=== PATIENT | female | born 1945 | race Asian ===

== ENCOUNTER → 2018-02-28 14:51 | Outpatient (CLI) | payer MEDICARE, SELFPAY ==
--- NOTE | 2018-02-28 | DI.RAD.S_ITS ---
PROCEDURE: XR CHEST 2V INDICATIONS: ACUTE BRONCHITIS TECHNIQUE: 2 views of the chest were acquired. COMPARISON: None. FINDINGS: Surgical changes and devices: None. Lungs and pleura: No pleural effusions or pneumothorax. Lungs are clear. Mediastinum: Mediastinal contours are normal. Heart size is normal. Bones and chest wall: No suspicious bony abnormalities. Soft tissues appear unremarkable. IMPRESSION: Normal for age, source of current symptoms is not seen. Dictated by: Edilson Bonner M.D. on 02/28/2018 at 15:35 Approved by: Edilson Bonner M.D. on 02/28/2018 at 15:35
== END ==
PROVIDERS: PCP Student in an Organized Health Care Education/Training Program; Visit Provider Student in an Organized Health Care Education/Training Program
DX: J20.9 Acute bronchitis, unspecified (principal)
CPT/HCPCS: 71046

== ENCOUNTER → 2018-06-15 10:14 | Outpatient (CLI) | payer MEDICARE, SELFPAY ==
--- NOTE | 2018-06-15 | DI.MG.S_ITS ---
BILATERAL DIGITAL SCREENING MAMMOGRAM 3D/2D WITH CAD: 06/15/2018 Comparison is made to exams dated: 04/20/2017 mammogram, 04/07/2016 mammogram, and 03/30/2015 mammogram - [facility]. There are scattered fibroglandular elements in both breasts. Current study was also evaluated with a Computer Aided Detection (CAD) system. There are mole markers on the right breast. No significant masses, calcifications, or other findings are seen in either breast. There has been no significant interval change. IMPRESSION: NEGATIVE There is no mammographic evidence of malignancy. A 1 year screening mammogram is recommended. This exam was interpreted at Station ID: [id number]. NOTE: For mammograms, a report in lay terms will be sent to the patient. Approximately 15% of breast malignancies will not be visualized mammographically. In the management of a palpable breast mass, a negative mammogram must not discourage biopsy of a clinically suspicious lesion. Electronically Signed By: Dima viera/mirela:06/15/2018 11:22:43 letter sent: Normal Exam ACR BI-RADS Category 1: Negative [id number]
== END ==
PROVIDERS: PCP Student in an Organized Health Care Education/Training Program; Visit Provider Student in an Organized Health Care Education/Training Program
DX: Z12.31 Encounter for screening mammogram for malignant neoplasm of breast (principal); M81.0 Age-related osteoporosis without current pathological fracture; Z78.0 Asymptomatic menopausal state; E07.9 Disorder of thyroid, unspecified
CPT/HCPCS: 77063; 77067; 77080

== ENCOUNTER → 2018-08-15 08:26 | Outpatient (CLI) | payer MEDICARE, SELFPAY ==
[2018-08-15 09:36] LABS: Add Manual Diff / Slide Review NO; Basophils Absolute Auto 100 /uL (0-100); Basophils Percent Auto 1.2 % (0-2); Eosinophils Absolute Auto 100 /uL (0-450); Eosinophils Percent Auto 2.3 % (2-4); Hematocrit 46.7 % (36-46); Hemoglobin 15.4 g/dL (12.0-16.0); Lymphocytes Absolute Auto 2500 /uL (1100-4500); Lymphocytes Percent Auto 43.5 % (25-40); Mean Corpuscular Hemoglobin 28.9 PG (26-34); Mean Corpuscular Volume 87.8 fL (80-100); Monocytes Absolute Auto 400 /uL (0-900); Monocytes Percent Auto 6.5 % (3-14); Neutrophils Absolute Auto 2700 /uL (1500-7000); Neutrophils Percent Auto 46.5 % (50-75); Platelet Count 229 X10^3/uL (150-400); Red Blood Cell Count 5.32 X10^6/uL (4.0-5.2); Red Cell Distribution Width 13.4 % (11.6-14.8); White Blood Cell Count 5.7 X10^3/uL (4.5-11.0)
[2018-08-15 09:43] LABS: Hemoglobin A1C% w Est Avg Glu 7.3 % (4.0-6.0)
[2018-08-15 10:34] LABS: Thyroid Stimulating Hormone 1.06 uIU/mL (0.47-4.68)
[2018-08-15 11:20] LABS: HEMOLYSIS < 15 (0-50); Iron 106 ug/dL (37-170)
[2018-08-15 11:30] LABS: Percent Iron Saturation 36 % (15-50); Total Iron Binding Capacity 298 ug/dL (265-497); Transferrin 257 mg/dL (206-381)
[2018-08-15 12:01] LABS: Alanine Aminotransferase 35 IU/L (9-52); Albumin 4.7 g/dL (3.5-5.0); Albumin Globulin Ratio 1.4 (1.0-2.8); Alkaline Phosphatase 76 U/L (38-126); Aspartate Aminotransferase 25 IU/L (14-36); BUN Creatinine Ratio 24.3 (6-22); Bilirubin Total 0.8 mg/dL (0.2-1.3); Blood Urea Nitrogen 17 mg/dL (7-17); Carbon Dioxide 26 mmol/L (22-32); Chloride 102 mmol/L (98-107); Estimated Glomerular Filt Rate > 60.0 mL/min (>60); Globulin 3.4 g/dL (1.7-4.1); Glucose 138 mg/dL (80-110); HEMOLYSIS < 15 (0-50); Potassium 4.7 mmol/L (3.4-5.1); Sodium 139 mmol/L (137-145); Total Protein 8.1 g/dL (6.3-8.2)
== END ==
PROVIDERS: PCP Student in an Organized Health Care Education/Training Program; Visit Provider Student in an Organized Health Care Education/Training Program
DX: E11.9 Type 2 diabetes mellitus without complications (principal); I10 Essential (primary) hypertension; E03.9 Hypothyroidism, unspecified; E78.5 Hyperlipidemia, unspecified
CPT/HCPCS: 36415; 80053; 83036; 83540; 83550; 84443; 85025

== ENCOUNTER → 2018-08-23 11:51 | Outpatient (CLI) | payer MEDICARE, SELFPAY ==
--- NOTE | 2018-08-23 | DI.RAD.S_ITS ---
PROCEDURE: XR CHEST 2V INDICATIONS: ACUTE BRONCHITIS TECHNIQUE: 2 views of the chest were acquired. COMPARISON: [facility], CR, XR CHEST 2V, 02/28/2018, 14:46. FINDINGS: Surgical changes and devices: None. Lungs and pleura: Lungs are clear. No pleural effusions or pneumothorax. Mediastinum: Mediastinal contours are normal. Heart size is normal. Bones and chest wall: No suspicious bony abnormalities. Soft tissues appear unremarkable. IMPRESSION: No evidence acute pulmonary process. Dictated by: Matti Parker M.D. on 08/23/2018 at 14:00 Approved by: Matti Parker M.D. on 08/23/2018 at 14:01
== END ==
PROVIDERS: PCP Student in an Organized Health Care Education/Training Program; Visit Provider Student in an Organized Health Care Education/Training Program
DX: J20.9 Acute bronchitis, unspecified (principal)
CPT/HCPCS: 71046

== ENCOUNTER → 2020-07-17 10:34 | Outpatient (CLI) | payer MEDICARE, SELFPAY ==
[2020-07-17] MEDS: COVID-19 VACC #1, MRNA(MOD) 100 MCG/0.5 ML VIAL IM (10:42)
== END ==
PROVIDERS: PCP Student in an Organized Health Care Education/Training Program; Visit Provider Internal Medicine
DX: Z23 Encounter for immunization (principal)
CPT/HCPCS: 0011A; 91301

== ENCOUNTER → 2020-08-14 08:44 | Outpatient (CLI) | payer MEDICARE, SELFPAY ==
[2020-08-14] MEDS: COVID-19 VACC #2, MRNA(MOD) 100 MCG/0.5 ML VIAL IM (08:50)
== END ==
PROVIDERS: PCP Student in an Organized Health Care Education/Training Program; Visit Provider Internal Medicine
DX: Z23 Encounter for immunization (principal)
CPT/HCPCS: 0012A; 91301

== ENCOUNTER → 2020-11-25 15:03 | Outpatient (CLI) | payer MEDICARE, SELFPAY ==
[2020-11-25 16:16] LABS: Add Manual Diff / Slide Review NO; Basophils Absolute Auto 100 /uL (0-100); Eosinophils Absolute Auto 200 /uL (0-450); Eosinophils Percent Auto 2.5 % (2-4); Hematocrit 46.1 % (36-46); Hemoglobin 15.2 g/dL (12.0-16.0); Lymphocytes Absolute Auto 2900 /uL (1100-4500); Lymphocytes Percent Auto 42.7 % (25-40); Mean Corpuscular HGB Conc 32.9 % (30-36); Mean Corpuscular Hemoglobin 28.8 PG (26-34); Mean Corpuscular Volume 87.5 fL (80-100); Monocytes Absolute Auto 500 /uL (0-900); Neutrophils Absolute Auto 3100 /uL (1500-7000); Neutrophils Percent Auto 45.8 % (50-75); Platelet Count 219 X10^3/uL (150-400); Red Blood Cell Count 5.27 X10^6/uL (4.0-5.2); Red Cell Distribution Width 13.4 % (11.6-14.8); White Blood Cell Count 6.8 X10^3/uL (4.5-11.0)
[2020-11-25 16:22] LABS: Hemoglobin A1C% w Est Avg Glu 10.1 % (4.0-6.0)
[2020-11-25 16:55] LABS: Potassium 4.7 mmol/L (3.4-5.1)
[2020-11-25 16:56] LABS: Blood Urea Nitrogen 13 mg/dL (7-17); Calcium 9.9 mg/dL (8.4-10.2); Carbon Dioxide 26 mmol/L (22-32); Chloride 101 mmol/L (98-107); Estimated Glomerular Filt Rate > 60.0 mL/min (>60); Glucose 233 mg/dL (80-110); Sodium 136 mmol/L (137-145)
[2020-11-25 17:04] LABS: HEMOLYSIS 63 (0-50)
[2020-11-25 17:25] LABS: TSH w/ Reflex to FT4 1.15 uIU/mL (0.47-4.68)
[2020-11-25 18:30] LABS: Creatinine Urine Random 68.7 mg/dL
[2020-11-25 18:34] LABS: Microalbumi Creatinin Ratio Ur 23.2 ug/mg CR (<30); Microalbumin Urine Random 1.6 mg/dL (0-1.6)
== END ==
PROVIDERS: PCP Student in an Organized Health Care Education/Training Program; Referring Provider Student in an Organized Health Care Education/Training Program; Visit Provider Student in an Organized Health Care Education/Training Program
DX: I10 Essential (primary) hypertension (principal); E03.9 Hypothyroidism, unspecified; E78.2 Mixed hyperlipidemia; R73.9 Hyperglycemia, unspecified; Z79.899 Other long term (current) drug therapy
CPT/HCPCS: 36415; 80048; 82043; 82570; 83036; 84443; 85025

== ENCOUNTER → 2020-12-31 15:03 | Outpatient (CLI) | payer MEDICARE, SELFPAY | PROVIDERS: PCP Student in an Organized Health Care Education/Training Program; Referring Provider Student in an Organized Health Care Education/Training Program; Visit Provider Student in an Organized Health Care Education/Training Program | DX: Z78.0 Asymptomatic menopausal state (principal); E03.9 Hypothyroidism, unspecified; M85.852 Other specified disorders of bone density and structure, left thigh; E11.9 Type 2 diabetes mellitus without complications | CPT/HCPCS: 77080 ==

== ENCOUNTER → 2021-03-16 09:56 | Outpatient (CLI) | payer MEDICARE, SELFPAY ==
[2021-03-16 11:05] LABS: Hemoglobin A1C% w Est Avg Glu 7.3 % (4.0-6.0)
== END ==
PROVIDERS: PCP Student in an Organized Health Care Education/Training Program; Referring Provider Student in an Organized Health Care Education/Training Program; Visit Provider Student in an Organized Health Care Education/Training Program
DX: E11.9 Type 2 diabetes mellitus without complications (principal)
CPT/HCPCS: 36415; 83036

== ENCOUNTER → 2021-08-03 09:08 | Outpatient (CLI) | payer OTHER, SELFPAY ==
[2021-08-03 11:16] LABS: Hemoglobin A1C% w Est Avg Glu 6.3 % (4.0-6.0)
== END ==
PROVIDERS: PCP Student in an Organized Health Care Education/Training Program; Referring Provider Student in an Organized Health Care Education/Training Program; Visit Provider Student in an Organized Health Care Education/Training Program
DX: E11.9 Type 2 diabetes mellitus without complications (principal)
CPT/HCPCS: 36415; 83036

== ENCOUNTER → 2021-11-19 06:57 | Outpatient (CLI) | payer OTHER, SELFPAY ==
[2021-11-19 08:28] LABS: Creatinine Urine Random 62.3 mg/dL
[2021-11-19 08:32] LABS: Microalbumin Urine Random 1.5 mg/dL (0-1.6)
[2021-11-19 08:38] LABS: Cholesterol 157 mg/dL (140-199); HDL Cholesterol 67 mg/dL (40-60); LDL Cholesterol Calculated 65 mg/dL (<100); Triglycerides 126 mg/dL (35-150)
[2021-11-19 08:40] LABS: Hemoglobin A1C% w Est Avg Glu 6.8 % (4.0-6.0)
[2021-11-19 09:09] LABS: TSH w/ Reflex to FT4 1.03 uIU/mL (0.47-4.68)
== END ==
PROVIDERS: PCP Student in an Organized Health Care Education/Training Program; Referring Provider Student in an Organized Health Care Education/Training Program; Visit Provider Student in an Organized Health Care Education/Training Program
DX: E11.69 Type 2 diabetes mellitus with other specified complication (principal); E78.5 Hyperlipidemia, unspecified; E11.9 Type 2 diabetes mellitus without complications; E03.9 Hypothyroidism, unspecified
CPT/HCPCS: 36415; 80061; 82043; 82570; 83036; 84443

== ENCOUNTER → 2022-05-05 08:12 | Outpatient (CLI) | payer OTHER, SELFPAY ==
[2022-05-05 09:20] LABS: Hemoglobin A1C% w Est Avg Glu 7.3 % (4.0-6.0)
== END ==
PROVIDERS: PCP Student in an Organized Health Care Education/Training Program; Referring Provider Student in an Organized Health Care Education/Training Program; Visit Provider Student in an Organized Health Care Education/Training Program
DX: E11.9 Type 2 diabetes mellitus without complications (principal)
CPT/HCPCS: 36415; 83036

== ENCOUNTER → 2022-11-08 06:30 | Outpatient (CLI) | payer OTHER, SELFPAY ==
[2022-11-08 08:31] LABS: BUN Creatinine Ratio 25.7 (6-22); Blood Urea Nitrogen 18 mg/dL (7-17); Calcium 9.3 mg/dL (8.4-10.2); Carbon Dioxide 26 mmol/L (22-32); Chloride 105 mmol/L (98-107); Cholesterol 122 mg/dL (140-199); Estimated Glomerular Filt Rate > 60 mL/min (>60); Glucose 137 mg/dL (80-110); HDL Cholesterol 57 mg/dL (40-60); HEMOLYSIS < 15 (0-50); LDL Cholesterol Calculated 46 mg/dL (<100); Potassium 4.1 mmol/L (3.4-5.1); Sodium 139 mmol/L (137-145); Triglycerides 94 mg/dL (35-150)
[2022-11-08 08:58] LABS: TSH w/ Reflex to FT4 1.51 uIU/mL (0.47-4.68)
[2022-11-08 09:13] LABS: Creatinine Urine Random 169.7 mg/dL
[2022-11-08 09:17] LABS: Microalbumi Creatinin Ratio Ur 8.2 ug/mg CR (<30); Microalbumin Urine Random 1.4 mg/dL (0-1.6)
[2022-11-09 06:01] LABS: x Labcorp Estim. Avg Glu (eAG) 166 mg/dL (.); x Labcorp Hemoglobin A1c 7.4 % (4.8-5.6)
== END ==
PROVIDERS: PCP Student in an Organized Health Care Education/Training Program; Referring Provider Student in an Organized Health Care Education/Training Program; Visit Provider Student in an Organized Health Care Education/Training Program
DX: E11.9 Type 2 diabetes mellitus without complications; E11.69 Type 2 diabetes mellitus with other specified complication; E78.5 Hyperlipidemia, unspecified; I10 Essential (primary) hypertension; E03.9 Hypothyroidism, unspecified
CPT/HCPCS: 36415; 80048; 80061; 82043; 82570; 83036; 84443

== ENCOUNTER 2023-01-11 20:11 | Emergency (ER) | payer OTHER, SELFPAY ==
[2023-01-11] VITALS (8 sets, daily range): BP systolic 171–239; BP diastolic 76–118; PULSE 63–85; RESP 18–33; TEMP 36; O2SAT 96–98; BMI 31.6
--- NOTE | 2023-01-11 20:53 | DI.US.S_ITS ---
PROCEDURE: US ABDOMEN LIMITED INDICATIONS: RUQ PAIN TECHNIQUE: Real-time focused scanning was performed of the abdomen, with image documentation. COMPARISON: None. FINDINGS: Evaluation limited by body habitus. Liver: The liver demonstrates increased parenchymal echogenicity compatible with fatty infiltration. Gallbladder: The gallbladder demonstrates multiple intraluminal gallstones. No wall thickening or pericholecystic fluid. Patient was reportedly tender on examination. Biliary system: No intra or extrahepatic biliary ductal dilatation. Pancreas: Not well seen. IMPRESSION: 1. Cholelithiasis without definite evidence of cholecystitis. 2. Increased hepatic echogenicity compatible with steatosis. Dictated by: Shiraz Lester M.D. on 01/11/2023 at 22:18 Approved by: Shiraz Lester M.D. on 01/11/2023 at 22:22
--- NOTE | 2023-01-11 20:53 | ED_ITS ---
HPI - General Adult General Chief complaint: Abdominal Pain Stated complaint: severe abd pain Time Seen by Provider: 01/11/23 20:44 Source: patient Mode of arrival: Ambulatory History of Present Illness HPI narrative: Patient is a 77-year-old female who is here for evaluation of upper abdominal discomfort. She states that it occurred this evening after eating dinner. Somewhat hard for her to pinpoint other than it is in her upper abdomen. No diarrhea. No constipation. No urinary symptoms. Some nausea but no vomiting. No prior abdominal surgeries. Afebrile. Has not tried anything for the symptoms prior to arrival. Related Data Previous Rx's Medication Instructions Recorded atorvastatin 20 mg tablet (Lipitor) 20 mg PO DAILY #90 tabs 11/10/22 aspirin 81 mg tablet,delayed 81 mg PO DAILY #90 tabs 11/14/22 release clonidine HCl 0.1 mg tablet 0.1 mg PO BEDTIME #90 tabs 11/14/22 diltiazem HCl 180 mg 180 mg PO DAILY #90 caps 11/14/22 capsule,extended release 24 hr levothyroxine 50 mcg tablet 50 mcg PO DAILY #90 tabs 11/14/22 (Synthroid) loratadine 10 mg tablet 10 mg PO DAILY PRN allergy 11/14/22 symptoms #90 tabs losartan 100 mg tablet 100 mg PO DAILY #90 tabs 11/14/22 metformin 1,000 mg tablet 1,000 mg PO BIDWMEAL #180 tabs 11/14/22 Allergies Allergy/AdvReac Type Severity Reaction Status Date / Time No Known Drug Allergies Allergy Unverified 11/14/22 08:27 Review of Systems Constitutional Constitutional: Reports system reviewed and no additional complaints, except as documented Cardiovascular Cardiovascular: Reports system reviewed and no additional complaints, except as documented Respiratory Respiratory: Reports system reviewed and no additional complaints, except as documented Gastrointestinal Gastrointestinal: Reports system reviewed and no additional complaints, except as documented Genitourinary Genitourinary: Reports system reviewed and no additional complaints, except as documented Integumentary/Breasts Skin/Breast: Reports system reviewed and no additional complaints, except as documented Patient History Medical History Environmental allergies Surgical History (Updated 08/16/19 @ 20:37 by Nelli Collins) History of section (~08/21/85) Family History (Updated 08/16/19 @ 20:38 by Nelli Collins) Father Hypertension Social History Smoking Status: Never smoker Smoking Status: Never smoker Substance Use Type: does not use Exam Initial Vital Signs Initial Vital Signs: Vital Signs Temperature 96.8 F L 01/11/23 20:15 Pulse Rate 85 01/11/23 20:15 Respiratory Rate 18 01/11/23 20:15 Blood Pressure 239/117 H 01/11/23 20:15 Pulse Oximetry 98 01/11/23 20:15 Oxygen Delivery Method Room Air 01/11/23 20:15 Const General: cooperative, comfortable and No ill appearing HENMT Head: normal to inspection and normocephalic Resp Effort & Inspection: normal respiratory effort Auscultation: clear to auscultation bilaterally Cardio Rate: regular rate Rhythm: regular rhythm GI Inspection: normal to inspection Palpation: soft, No firm and tender (Epigastric and right upper quadrant) Back/Spine/Pelvis Back: No CVA tenderness Skin General: no rashes or lesions noted Neuro General: patient alert, patient awake, patient oriented x3 and moves all extremities Extrem General: capillary refill normal Course Orders Ordered: ED Orders 01/11/23 20:41 Complete Blood Count AUTO DIFF Stat Comprehensive Metabolic Panel Stat Lipase Stat 01/11/23 20:44 EKG-12 Lead Stat 01/11/23 20:53 US abdomen limited Stat 01/11/23 22:59 CT abdomen pelvis w con Stat Ondansetron HCl (Ondansetron 4 Mg/2 Ml Inj) 4 mg IV NOW PRN PRN Reason: Nausea And Vomiting Last Admin: 01/11/23 21:02 Dose: 4 mg Documented By: OW Ondansetron HCl (Ondansetron 4 Mg Odt) 4 mg PO NOW PRN PRN Reason: Nausea And Vomiting Discontinued Medications Clonidine HCl (Clonidine 0.1 Mg Tablet) 0.1 mg PO NOW ONE Stop: 01/11/23 20:54 Last Admin: 01/11/23 21:02 Dose: 0.1 mg Documented By: OW Morphine Sulfate (Morphine 4 Mg/Ml Inj) 4 mg IV NOW ONE Stop: 01/11/23 20:54 Last Admin: 01/11/23 21:03 Dose: 4 mg Documented By: OW Morphine Sulfate (Morphine 4 Mg/Ml Inj) 4 mg IV NOW ONE Stop: 01/11/23 23:00 Last Admin: 01/11/23 23:08 Dose: 4 mg Documented By: CHARITY Vital Signs Vital signs: Vital Signs - 8 hr 01/11/23 20:15 01/11/23 20:45 01/11/23 21:02 Temperature 96.8 F L Pulse Rate 85 71 76 Respiratory Rate 18 20 Blood Pressure 239/117 H 225/105 H 219/100 H Pulse Oximetry 98 96 Oxygen Delivery Method Room Air Room Air 01/11/23 21:00 01/11/23 21:31 01/11/23 22:00 Temperature Pulse Rate 77 63 Respiratory Rate 26 H 33 H Blood Pressure 219/100 H 178/76 H 199/112 H Pulse Oximetry 96 96 Oxygen Delivery Method Room Air Room Air 01/11/23 22:00 01/11/23 22:30 01/11/23 22:30 Temperature Pulse Rate 65 68 Respiratory Rate 30 H 32 H Blood Pressure 171/118 H Pulse Oximetry 96 97 Oxygen Delivery Method 01/11/23 23:00 Temperature Pulse Rate 67 Respiratory Rate 25 H Blood Pressure 192/90 H Pulse Oximetry 96 Oxygen Delivery Method Room Air Medical Decision Making Lab Data Lab results reviewed: Yes I reviewed the patient's lab results. 01/11/23 20:41 01/11/23 20:41 Labs: Lab Results 01/11/23 01/11/23 Range/Units 20:41 20:41 WBC 9.5 (4.5-11.0) X10^3/uL RBC 5.04 (4.0-5.2) X10^6/uL Hgb 14.6 (12.0-16.0) g/dL Hct 43.7 (36-46) % MCV 86.7 (80-100) fL MCH 29.0 (26-34) PG MCHC 33.5 (30-36) % RDW 13.8 (11.6-14.8) % Plt Count 233 (150-400) X10^3/uL Neut % (Auto) 60.5 (50-75) % Lymph % (Auto) 29.5 (25-40) % [place] % (Auto) 7.5 (3-14) % Eos % (Auto) 1.3 L (2-4) % Baso % (Auto) 1.2 (0-2) % Neut # (Auto) 5700 (6898-1460) /uL Lymph # (Auto) 2800 (0019-7711) /uL [place] # (Auto) 700 (0-900) /uL Eos # (Auto) 100 (0-450) /uL Baso # (Auto) 100 (0-100) /uL Sodium 136 L (137-145) mmol/L Potassium 4.1 (3.4-5.1) mmol/L Chloride 101 (98-107) mmol/L Carbon Dioxide 23 (22-32) mmol/L BUN 21 H (7-17) mg/dL Creatinine 0.78 (0.52-1.04) mg/dL Estimated GFR > 60 (>60) mL/min BUN/Creatinine Ratio 26.9 H (6-22) Glucose 177 H (80-110) mg/dL Calcium 9.5 (8.4-10.2) mg/dL Total Bilirubin 0.4 (0.2-1.3) mg/dL AST 35 (14-36) IU/L ALT 33 (<35) IU/L Alkaline Phosphatase 89 (38-126) U/L Total Protein 8.2 (6.3-8.2) g/dL Albumin 4.7 (3.5-5.0) g/dL Globulin 3.5 (1.7-4.1) g/dL Albumin/Globulin Ratio 1.3 (1.0-2.8) Lipase 91 (23-300) U/L Urine Dip Bedside Urine Glucose Negative Bedside Urine Bilirubin - Negative Bedside Urine Ketone - Negative Urine Specific [place] 1.10 Bedside Urine Occult Blood - Negative Bedside Urine pH 6.0 Bedside Urine Protein - Negative Bedside Urine Urobilinogen - Negative Bedside Urine Nitrite - Negative Bedside Urine Leukocytes - Negative Esterase Point of care testing: Urine Dip Bedside Urine Glucose Negative Bedside Urine Bilirubin - Negative Bedside Urine Ketone - Negative Urine Specific [place] 1.10 Bedside Urine Occult Blood - Negative Bedside Urine pH 6.0 Bedside Urine Protein - Negative Bedside Urine Urobilinogen - Negative Bedside Urine Nitrite - Negative Bedside Urine Leukocytes - Negative Esterase Imaging Data US - abdomen: Radiologist's Impression: PROCEDURE: US ABDOMEN LIMITED ? INDICATIONS:? RUQ PAIN ? TECHNIQUE:? Real-time focused scanning was performed of the abdomen, with image documentat ion.? ? COMPARISON:? None. ? FINDINGS:? ? Evaluation limited by body habitus. ? Liver: The liver demonstrates increased parenchymal echogenicity compatible with fatty infiltration. ? Gallbladder: The gallbladder demonstrates multiple intraluminal gallstones.? No wall thickening or pericholecystic fluid.? Patient was reportedly tender on examination. ? Biliary system: No intra or extrahepatic biliary ductal dilatation. ? Pancreas:? Not well seen. ? IMPRESSION:? ? 1. Cholelithiasis without definite evidence of cholecystitis. ? 2. Increased hepatic echogenicity compatible with steatosis.? CT scan - abdomen/pelvis: Radiologist's Impression: PROCEDURE:? CT ABDOMEN PELVIS W CON ? INDICATIONS:? Right-sided abdominal pain ? TECHNIQUE:? After the administration of IV contrast, axial sections were acquired from the lung bases to the pubic symphysis.? Coronal and sagittal reformats were performed.? For radiation dose reduction, the following was used:? automated exposure control, adjustment of mA and/or kV according to patient size. ? COMPARISON:? None. ? FINDINGS:? Image quality:? Excellent.? ? Lung bases:? There is mild atelectasis and scarring in the lung bases.? ? Heart:? Heart is normal in size. ? ? ABDOMEN: Liver:? No mass lesion. Gallbladder:? There is partial distention of the gallbladder fundus suggestive of a Phrygian cap with internal densely calcified stone or mass measuring up to 3.1 cm.? A few small dependent calcified gallstones are also demonstrated elsewhere in the gallbladder.? No definite wall thickening or pericholecystic fluid. Biliary ducts:? No biliary ductal dilatation.? ? Pancreas:? Unremarkable.? ? Spleen:? Normal in size.? ? Adrenal Glands:? There is a left adrenal nodule measuring up to 1.5 cm with indeterminate attenuation values. Kidneys and Ureters:? No hydronephrosis.? There are small hypodense foci within the kidneys which are too small to characterize but likely represent cysts. ? ? Stomach and Bowel:? There are a few mildly distended loops of small bowel within the mid abdomen, measuring up to 3.0 cm with scattered air-fluid levels and small bowel fecalization.? The appendix is normal.? Peritoneum:? No abnormal intraperitoneal fluid.? No free air.? ? Ventral Wall: ? No hernia.? Abdominal Nodes:? No retroperitoneal or mesenteric adenopathy by size criteria.? Vessels:? Aorta and inferior vena cava are normal in size.? ? PELVIS: Pelvic Organs:? There are multiple densely calcified fibroids within the uterus.? ? Bladder:? Unremarkable.? ? Pelvic Nodes: No enlarged lymph nodes.? Miscellaneous: No inguinal hernias are seen. ? ? ? Bones:? Visualized osseous structures demonstrate no suspicious focal lesions. ? IMPRESSION:? ? 1. Phrygian cap of the gallbladder with internal calcified stones or mass.? Cholelithiasis also demonstrated elsewhere in the gallbladder without CT evidence of cholecystitis. ? 2. Indeterminate left adrenal nodule. ? 3. Mildly distended loops of small bowel in the mid abdomen with scattered air- fluid levels and small bowel fecalization.? The findings are suggestive of stasis, an ileus, or gastroenteritis.? The differential includes developing bowel obstruction but this is considered less likely.? ECG Data Attestation: I personally reviewed and interpreted this ECG as follows: Interpretation: Sinus rhythm Ventricular rate 83 Normal axis Normal QRS Normal QTC No ST T wave changes MDM Narrative Medical decision making narrative: Patient does have upper abdominal pain. She has cholelithiasis without signs of acute cholecystitis and a normal lactate and LFTs and bilirubin. This could potentially be the source of her symptoms. She did feel somewhat better after the nausea and pain medication. A CT scan was ordered as well. She does have findings that are consistent with gastroenteritis. This could very well been the cause of her symptoms as well. It did start right after she ate dinner this evening. There was no indication for antibiotics. No indication for emergent surgical consultation. I had a discussion with her and family at bedside rega rding these symptoms. Recommended a bland diet. Nausea medication as needed. Follow-up with General surgery. They were given strict return precautions. They expressed understanding and agreement. Discharge Plan Departure Patient Disposition: Home Clinical Impression: Cholelithiasis, Gastroenteritis, Abdominal pain Instructions: DI for Abdominal Pain-Adult Activity Restrictions/Additional Instructions: You can continue to take all of your medications as directed. I would not be surprised if over the next couple days you do develop some diarrhea. Be sure that you were just increasing your fluid intake if this happens. Also recommend a bland diet. You can try Tylenol/ibuprofen and potentially some Pepto-Bismol to help with the abdominal discomfort. Contact the general surgeons at the number provided below when your symptoms have improved to discuss potentially having your gallbladder removed. Return to the emergency department for new or worsening symptoms. Prescriptions: No Action atorvastatin [Lipitor] 20 mg tablet 20 mg PO DAILY Qty: 90 0RF aspirin 81 mg tablet,delayed release (DR/EC) 81 mg PO DAILY Qty: 90 1RF diltiazem HCl 180 mg capsule,extended release 24hr 180 mg PO DAILY Qty: 90 1RF clonidine HCl 0.1 mg tablet 0.1 mg PO BEDTIME Qty: 90 1RF levothyroxine [Synthroid] 50 mcg tablet 50 mcg PO DAILY Qty: 90 1RF loratadine 10 mg tablet 10 mg PO DAILY PRN (Reason: allergy symptoms) Qty: 90 1RF losartan 100 mg tablet 100 mg PO DAILY Qty: 90 1RF metformin 1,000 mg tablet 1,000 mg PO BIDWMEAL Qty: 180 1RF Referrals: Isha Everett MD [Physician] - Abdelrahman Roberts MD [Primary Care Provider] - Stand Alone Forms: Patient Portal/API
[2023-01-11 21:00] LABS: Add Manual Diff / Slide Review NO; Basophils Absolute Auto 100 /uL (0-100); Basophils Percent Auto 1.2 % (0-2); Eosinophils Absolute Auto 100 /uL (0-450); Eosinophils Percent Auto 1.3 % (2-4); Hematocrit 43.7 % (36-46); Hemoglobin 14.6 g/dL (12.0-16.0); Lymphocytes Absolute Auto 2800 /uL (1100-4500); Lymphocytes Percent Auto 29.5 % (25-40); Mean Corpuscular HGB Conc 33.5 % (30-36); Mean Corpuscular Volume 86.7 fL (80-100); Monocytes Absolute Auto 700 /uL (0-900); Monocytes Percent Auto 7.5 % (3-14); Neutrophils Absolute Auto 5700 /uL (1500-7000); Neutrophils Percent Auto 60.5 % (50-75); Platelet Count 233 X10^3/uL (150-400); Red Blood Cell Count 5.04 X10^6/uL (4.0-5.2); Red Cell Distribution Width 13.8 % (11.6-14.8); White Blood Cell Count 9.5 X10^3/uL (4.5-11.0)
[2023-01-11] MEDS: ONDANSETRON 4 MG/2 ML INJ IV (21:02)
[2023-01-11] MEDS: cloNIDine 0.1 MG TABLET PO (21:02)
[2023-01-11] MEDS: MORPHINE 4 MG/ML INJ IV ×2 (21:03→23:08)
[2023-01-11 21:05] LABS: Alanine Aminotransferase 33 IU/L (<35); Albumin 4.7 g/dL (3.5-5.0); Albumin Globulin Ratio 1.3 (1.0-2.8); Alkaline Phosphatase 89 U/L (38-126); Aspartate Aminotransferase 35 IU/L (14-36); BUN Creatinine Ratio 26.9 (6-22); Bilirubin Total 0.4 mg/dL (0.2-1.3); Blood Urea Nitrogen 21 mg/dL (7-17); Calcium 9.5 mg/dL (8.4-10.2); Carbon Dioxide 23 mmol/L (22-32); Chloride 101 mmol/L (98-107); Estimated Glomerular Filt Rate > 60 mL/min (>60); Globulin 3.5 g/dL (1.7-4.1); Glucose 177 mg/dL (80-110); HEMOLYSIS 19 (0-50); Lipase 91 U/L (23-300); Potassium 4.1 mmol/L (3.4-5.1); Sodium 136 mmol/L (137-145); Total Protein 8.2 g/dL (6.3-8.2)
--- NOTE | 2023-01-11 22:59 | DI.CT.S_ITS ---
PROCEDURE: CT ABDOMEN PELVIS W CON INDICATIONS: Right-sided abdominal pain TECHNIQUE: After the administration of IV contrast, axial sections were acquired from the lung bases to the pubic symphysis. Coronal and sagittal reformats were performed. For radiation dose reduction, the following was used: automated exposure control, adjustment of mA and/or kV according to patient size. COMPARISON: None. FINDINGS: Image quality: Excellent. Lung bases: There is mild atelectasis and scarring in the lung bases. Heart: Heart is normal in size. ABDOMEN: Liver: No mass lesion. Gallbladder: There is partial distention of the gallbladder fundus suggestive of a Phrygian cap with internal densely calcified stone or mass measuring up to 3.1 cm. A few small dependent calcified gallstones are also demonstrated elsewhere in the gallbladder. No definite wall thickening or pericholecystic fluid. Biliary ducts: No biliary ductal dilatation. Pancreas: Unremarkable. Spleen: Normal in size. Adrenal Glands: There is a left adrenal nodule measuring up to 1.5 cm with indeterminate attenuation values. Kidneys and Ureters: No hydronephrosis. There are small hypodense foci within the kidneys which are too small to characterize but likely represent cysts. Stomach and Bowel: There are a few mildly distended loops of small bowel within the mid abdomen, measuring up to 3.0 cm with scattered air-fluid levels and small bowel fecalization. The appendix is normal. Peritoneum: No abnormal intraperitoneal fluid. No free air. Ventral Wall: No hernia. Abdominal Nodes: No retroperitoneal or mesenteric adenopathy by size criteria. Vessels: Aorta and inferior vena cava are normal in size. PELVIS: Pelvic Organs: There are multiple densely calcified fibroids within the uterus. Bladder: Unremarkable. Pelvic Nodes: No enlarged lymph nodes. Miscellaneous: No inguinal hernias are seen. Bones: Visualized osseous structures demonstrate no suspicious focal lesions. IMPRESSION: 1. Phrygian cap of the gallbladder with internal calcified stones or mass. Cholelithiasis also demonstrated elsewhere in the gallbladder without CT evidence of cholecystitis. 2. Indeterminate left adrenal nodule. 3. Mildly distended loops of small bowel in the mid abdomen with scattered air-fluid levels and small bowel fecalization. The findings are suggestive of stasis, an ileus, or gastroenteritis. The differential includes developing bowel obstruction but this is considered less likely. Dictated by: Shiraz Lester M.D. on 01/12/2023 at 0:03 Approved by: Shiraz Lester M.D. on 01/12/2023 at 0:12
[2023-01-12] MEDS: ONDANSETRON 4 MG ODT PREPACK 1 BOTTLE MISC (01:00)
[2023-01-12] MEDS: ONDANSETRON 4 MG ODT PO (01:13)
[2023-01-12 01:16] VITALS: BP 162/70; PULSE 57; RESP 16; O2SAT 95
== END 2023-01-12 01:19 | disposition home or self-care (01) ==
PROVIDERS: Emergency Provider Emergency Medicine; PCP Pediatrics
DX: K80.20 Calculus of gallbladder without cholecystitis without obstruction (principal); K52.9 Noninfective gastroenteritis and colitis, unspecified; R10.9 Unspecified abdominal pain
CPT/HCPCS: 36415; 74177; 76705; 80053; 81003; 83690; 85025; 93005; 96374; 96375; 96376; 99284; J2270; J2405; Q9967

== ENCOUNTER → 2023-06-02 08:56 | Outpatient (CLI) | payer OTHER, SELFPAY ==
[2023-06-02 10:24] LABS: Hemoglobin A1C% w Est Avg Glu 7.3 % (4.0-6.0)
[2023-06-02 10:35] LABS: Blood Urea Nitrogen 17 mg/dL (7-17); Calcium 10.1 mg/dL (8.4-10.2); Carbon Dioxide 26 mmol/L (22-32); Chloride 100 mmol/L (98-107); Estimated Glomerular Filt Rate > 60 mL/min (>60); Glucose 138 mg/dL (80-110); HEMOLYSIS < 15 (0-50); Potassium 4.5 mmol/L (3.4-5.1); Sodium 136 mmol/L (137-145)
== END ==
PROVIDERS: PCP Family Medicine; Referring Provider Family Medicine; Visit Provider Family Medicine
DX: E11.69 Type 2 diabetes mellitus with other specified complication (principal); E78.5 Hyperlipidemia, unspecified; E11.9 Type 2 diabetes mellitus without complications; E03.9 Hypothyroidism, unspecified; I10 Essential (primary) hypertension
CPT/HCPCS: 36415; 80048; 83036

== ENCOUNTER → 2023-11-21 06:52 | Outpatient (CLI) | payer OTHER, SELFPAY ==
[2023-11-21 08:20] LABS: Hemoglobin A1C% w Est Avg Glu 6.8 % (4.0-6.0)
[2023-11-21 08:43] LABS: BUN Creatinine Ratio 24.6 (6-22); Blood Urea Nitrogen 16 mg/dL (7-17); Calcium 9.3 mg/dL (8.4-10.2); Carbon Dioxide 24 mmol/L (22-32); Chloride 108 mmol/L (98-107); Estimated Glomerular Filt Rate > 60 mL/min (>60); Glucose 129 mg/dL (80-110); HEMOLYSIS < 15 (0-50); Potassium 4.5 mmol/L (3.4-5.1); Sodium 139 mmol/L (137-145)
[2023-11-21 08:59] LABS: TSH w/ Reflex to FT4 1.13 uIU/mL (0.47-4.68)
== END ==
LOC: LAB 06:53
PROVIDERS: PCP Family Medicine; Referring Provider Family Medicine; Visit Provider Family Medicine
DX: E03.9 Hypothyroidism, unspecified (principal); E11.69 Type 2 diabetes mellitus with other specified complication; E78.5 Hyperlipidemia, unspecified; E11.9 Type 2 diabetes mellitus without complications
CPT/HCPCS: 36415; 80048; 83036; 84443